=== PATIENT | male | born 1970 | race Caucasian/White ===

== ENCOUNTER 2024-01-21 16:46 | Emergency (ER) | payer BC ==
[~2024-01-21] VITALS: Ht 190.5 cm; Wt 95.3 kg
[2024-01-21] MEDS: IV NS 0.9% 1,000 ML BAG IV ONE (19:25)
[2024-01-21 19:46] LABS: BASOPHILS % (AUTO) 0.2 % (0.0-2.0); EOSINOPHILS # (AUTO) 0.2 K/uL (0.0-0.7); EOSINOPHILS % (AUTO) 2.9 % (0.0-6.0); HEMATOCRIT 40 % (39-51); HEMOGLOBIN 13.1 g/dL (13.5-17.5); LYMPHOCYTES # (AUTO) 1.5 K/uL (0.8-4.8); LYMPHOCYTES % (AUTO) 17.6 % (20.0-44.0); MEAN CORPUSCULAR HEMOGLOBIN 32 PG (26.0-33.0); MEAN CORPUSCULAR HGB CONC 33 g/dl (31.0-36.0); MEAN CORPUSCULAR VOLUME 97 fL (80-96); MONOCYTES # (AUTO) 0.6 K/uL (0.1-1.30); MONOCYTES % (AUTO) 7.6 % (2.0-12.0); NEUTROPHILS # (AUTO) 6.1 K/uL (1.8-8.9); NEUTROPHILS % (AUTO) 71.7 % (43.0-81.0); PLATELET COUNT (AUTO) 244 K/uL (150-450); RED CELL DISTRIBUTION WIDTH 13.6 % (11.5-15.0); WHITE BLOOD COUNT (AUTO) 8.5 K/uL (4.3-11.0)
[2024-01-21 20:00] LABS: CARBON DIOXIDE 28 mmol/L (21-32); CHLORIDE 102 mmol/L (98-107); CREATININE 1.1 mg/dL (0.6-1.3); GLUCOSE 85 mg/dL (74-106); POTASSIUM 4.5 mmol/L (3.5-5.1); SODIUM SERUM 138 mmol/L (136-145); UREA NITROGEN, BLOOD 21 mg/dL (7-18)
[2024-01-21 20:05] LABS: ALANINE AMINOTRANSFERASE 21 U/L (12-78); ALBUMIN 3.4 g/dL (3.4-5.0); ALKALINE PHOSPHATASE 69 U/L (46-116); ASPARTATE AMINOTRANSFERASE 26 U/L (15-37); BILIRUBIN,DIRECT 0.1 mg/dL (0.0-0.2); BILIRUBIN,TOTAL 0.5 mg/dL (0.2-1.0); TOTAL PROTEIN, SERUM 8.1 g/dL (6.4-8.2)
[2024-01-21 20:11] LABS: THYROID STIMULATING HORMONE 1.02 uIU/mL (0.358-3.74)
[2024-01-21 20:56] VITALS: BP 129/89; TEMP 98; O2SAT 99
[2024-01-21 21:07] LABS: INR 1.11 (0.91-1.10); PARTIAL THROMBOPLASTIN TIME 26.4 SEC (24.3-34.3); PROTHROMBIN TIME 11.7 SECS (9.2-11.1)
== END 2024-01-21 20:57 | disposition home or self-care (01) ==
LOC: ER 16:52
DX: R55 Syncope and collapse (principal); F32.A Depression, unspecified; R07.9 Chest pain, unspecified; R51.9 Headache, unspecified; Z86.69 Personal history of other diseases of the nervous system and sense organs
CPT/HCPCS: 99285; 96360; 70450; 71045; 93005; 85025; 80048; 80076; 83735; 36415; 84439; 84443; 84484; 85730; 83880; J7030